=== PATIENT | female | born 1980 | race Caucasian/White ===

== ENCOUNTER → 2016-06-05 | Outpatient (CLI) | payer BC, OTHER ==
[~2016-06-05] MED LIST: CENTRUM SILVER1 EAC4 PO; FISH OIL 1,001000 M2 PO; NORCO 5-325 TA1 EACH PO; TURMERIC500 MG PO
== END ==
LOC: RAD 01:18
DX: Z12.31 Encounter for screening mammogram for malignant neoplasm of breast (principal)